=== PATIENT | female | born 1990 | race Caucasian/White ===

== ENCOUNTER 2024-07-02 22:02 | Emergency (ER) | payer MEDICAID ==
[~2024-07-02] VITALS: Ht 152.4 cm; Wt 57.0 kg
[2024-07-02 22:29] VITALS: TEMP 37; O2SAT 100
[2024-07-02 22:32] VITALS: O2SAT 100
[2024-07-03 02:27] LABS: BASOPHILS % 0.6 % (0.0-2.0); EOSINOPHILS % 1.1 % (0.0-5.0); HEMATOCRIT. 43.8 % (36.0-48.0); HEMOGLOBIN. 14.7 g/dL (12.0-16.0); LYMPHOCYTES % 35.8 % (20.0-50.0); MEAN CORPUSCULAR HEMOGLOBIN 30.2 pg (28.0-32.0); MEAN CORPUSCULAR HGB CONC 33.6 g/dL (31.0-37.0); MEAN CORPUSCULAR VOLUME 90.1 fL (81.0-99.0); MEAN PLATELET VOLUME 8.9 fl (7.4-10.4); MONOCYTES % 6.3 % (2.0-8.0); NEUTROPHILS % 56.2 % (40.0-76.0); PLATELET 171 x1000/uL (130-400); RED BLOOD CELL COUNT 4.86 mill/uL (4.2-5.4); RED CELL DISTRIBUTION WIDTH 14.2 % (11.6-14.6); WHITE BLOOD COUNT 4.9 x1000/uL (4.5-11.0)
[2024-07-03 02:38] LABS: CHLORIDE 104 mEq/L (98-107); POTASSIUM 3.7 mEq/L (3.5-5.1); SODIUM 140 mEq/L (136-145)
[2024-07-03 02:39] LABS: CALCIUM 10.4 mg/dL (8.7-10.4); CARBON DIOXIDE 23 mEq/L (21-32)
[2024-07-03 02:44] LABS: CREATININE 0.7 mg/dL (0.6-1.0); GLUCOSE 100 mg/dL (70-105); UREA NITROGEN BLOOD 5 mg/dL (9-23)
[2024-07-03 02:45] LABS: ETHANOL BLOOD 189 mg/dL (<10)
[2024-07-03 02:46] LABS: HCG SCREEN NEGATIVE
[2024-07-03 02:58] LABS: TROPONIN I HIGH SENSITIVITY < 4 ng/L (3.0-34)
[2024-07-03 03:49] LABS: PROTHROMBIN TIME 10.9 sec (9.6-11.0)
[2024-07-03 04:10] VITALS: BP 126/87; PULSE 101; RESP 18
[2024-07-03] MEDS: HYDROCODONE/ACETAMINOPHEN 10/325MG TABLET PO NR (04:10)
[2024-07-03 04:24] LABS: TROPONIN I HIGH SENSITIVITY < 4 ng/L (3.0-34)
== END 2024-07-03 04:21 | disposition home or self-care (01) ==
LOC: ER 22:02
DX: R07.89 Other chest pain (principal); R00.2 Palpitations; I25.2 Old myocardial infarction
CPT/HCPCS: 36415; 71045; 80048; 80320; 84484; 84703; 85025; 93005; 99285; G0480